=== PATIENT | male | born 1940 | race Caucasian/White ===

== ENCOUNTER 2017-04-11 13:57 | Emergency (ER) | payer MEDICARE, MEDICAID ==
[~2017-04-11] VITALS: Ht 170.2 cm; Wt 76.0 kg
[~2017-04-11 13:57] MED LIST: ACET250T3 PO; ATOR40TA PO; CARD4TAB2 PO; CARV25TA PO; DOCU1CAP39 PO; DONE10TA14 PO; FE T325T PO; FURO40TA PO; GLUC10TA3 PO; HYDR25TA35 PO; INSU1.2I SQ; LISI-363 PO; NOVOLOGP2 SQ; PROT40TA PO; REME15TA PO; TRAM50 PO; TRAZ100 PO; WELL150T PO
[2017-04-11 14:00] VITALS: BP 149/71; PULSE 99; RESP 17; TEMP 98.9; O2SAT 98
[2017-04-11] MEDS ORDERED: SOD PHOSPHATE/SOD BIPHOSPHATE (ADULT) ENEMA 133ML RECTAL ONE (15:45)
--- NOTE | 2017-04-11 15:50 | PD ---
HPI Chief Complaint: GI Complaint Time Seen by Provider: 14:26 Travel History International Travel<30 days: No Contact w/Intl Traveler<30days: No Traveled to known affect area: No History of Present Illness HPI 77 years old male complains of constipation for week and a half. Patient states that he is feeling pressure on the rectum area. Patient denies abdominal pain. Patient denies any fever chills. Patient denies any nausea vomiting diarrhea. Patient denies any back pain. Patient denies any recent history of opioid. Patient has history of diabetes and blood sugar has been under control. PFSH Past Medical History Hx Anticoagulant Therapy: No Depression: Yes Cardiovascular Problems: No High Cholesterol: Yes Chemotherapy: No Cerebrovascular Accident: No Diabetes: Yes Patient Takes Glucophage: No Genitourinary: Yes (enlarged prostate ) Hiatal Hernia: No Hypertension: Yes Musculoskeletal: No Neurologic: No Reproductive: No Respiratory: No Past Surgical History AICD: No Eye Surgery: Yes (BILATERAL CATARACT) Genitourinary Surgery: Yes (vasectomy) Joint Replacement: No Pacemaker: No Social History Alcohol Use: No Tobacco Use: No Substance Use: No Allergies-Medications (Allergen,Severity, Reaction): Coded Allergies: No Known Allergies (Unverified , 07/02/15) Reported Meds & Prescriptions Reported Meds & Active Scripts Active Colace 100 Mg Cap (Docusate Sodium) 100 Mg Cap 100 Mg PO BID Reported Cardura 4 mg (Doxazosin Mesylate) 4 Mg Tab 1 Tab PO HS Fe Tabs (Ferrous Sulfate) 325 Mg Tab 325 Mg PO DAILY Wellbutrin Sr (Bupropion HCl) 150 Mg Tab 150 Mg PO Q12H Trazodone Hcl (Trazodone HCl) 100 Mg Tab 100 Mg PO HS Acetazolamide 250 Mg Tab 250 Mg PO DAILY Ultram (Tramadol HCl) 50 Mg Tab 50 Mg PO BID PRN FOR PAIN Protonix (Pantoprazole Sodium) 40 Mg Tabdr 40 Mg PO DAILY Atorvastatin 40 mg (Atorvastatin Calcium) 40 Mg Tab 40 Mg PO DAILY Furosemide 40 Mg Tab 40 Mg PO DAILY Remeron 15 mg (Mirtazapine) 15 Mg Tab 15 Mg PO HS Donepezil 10 mg 10 Mg Tab 10 Mg PO DAILY Glipizide 10 Mg Tab 10 Mg PO DAILY Lisinopril 20 mg (Lisinopril) 20 Mg Tab 20 Mg PO DAILY Carvedilol 25 mg (Carvedilol) 25 Mg Tab 25 Mg PO DAILY Hydralazine HCl 25 Mg Tab 25 Mg PO TID Touaudrey Solostar (Insulin Glargine) 300 Unit/Ml Inj 30 Units SQ HS Novolog (Insulin Aspart) 100 Units/ML Inj 12 Units SQ TIDACHS Max dose at bedtime:( )units; sugars less than 70, (0)units; sugars 150-199, (1) unit; sugars 200-249, (3) units; sugars 250-299, (5) units; sugars 300-349, (7) units; sugars greater than 349, (9) units Review of Systems General / Constitutional: No: Fever Eyes: No: Visual changes HENT: No: Headaches Cardiovascular: No: Chest Pain or Discomfort Respiratory: No: Shortness of Breath Gastrointestinal: Positive: Constipation, No: Abdominal Pain Genitourinary: No: Dysuria Musculoskeletal: No: Pain Skin: No Rash Neurologic: No: Weakness Psychiatric: No: Depression Endocrine: No: Polydipsia Hematologic/Lymphatic: No: Easy Bruising Physical Exam Narrative GENERAL: Well-nourished, well-developed patient. SKIN: Focused skin assessment warm/dry. HEAD: Normocephalic. EYES: No scleral icterus. No injection or drainage. NECK: Supple, trachea midline. No JVD or lymphadenopathy. CARDIOVASCULAR: Regular rate and rhythm without murmurs, gallops, or rubs. RESPIRATORY: Breath sounds equal bilaterally. No accessory muscle use. GASTROINTESTINAL: Abdomen soft, non-tender, nondistended. Rectal exam patient has impacted stool. Hemoccult negative. MUSCULOSKELETAL: No cyanosis, or edema. BACK: Nontender without obvious deformity. No CVA tenderness. Neurologic exam normal. Data Data Last Documented VS Vital Signs Date Time Temp Pulse Resp B/P (MAP) Pulse Ox O2 Delivery O2 Flow Rate FiO2 04/11/17 14:26 18 04/11/17 14:00 98.9 99 149/71 (97) 98 Room Air Orders Orders Fleets Enema (Adult) (Fleets Enema (Adul (04/11/17 15:45) MDM Medical Decision Making Medical Screen Exam Complete: Yes Emergency Medical Condition: Yes Differential Diagnosis Differential diagnosis including constipation, stool impaction. Narrative Course 77 years old male with constipation. Fleets enema given in the ED with good results. Diagnosis Primary Impression: Impacted stool in rectum Patient Instructions: General Instructions Additional Instructions: [id number] stool softener as needed. Fleet enema as needed. Follow-up with personal physician. Med/Other Pt SpecificInfo: No Change to Meds Disposition: 01 DISCHARGE HOME Condition: Stable Scott Cobos MD Apr 11, 2017 15:50
== END 2017-04-11 17:41 | disposition home or self-care (01) ==
LOC: NEPE 13:57
DX: K56.41 Fecal impaction (principal); F32.9 Major depressive disorder, single episode, unspecified; E11.9 Type 2 diabetes mellitus without complications; I10 Essential (primary) hypertension
CPT/HCPCS: 99282